=== PATIENT | male | born 1980 | race Hispanic/Latino ===

== ENCOUNTER 2017-12-14 14:52 | Emergency (ER) | payer SELFPAY ==
[2017-12-14] MEDS ORDERED: NA CHLORIDE 0.9% 1,000 ML ONE (15:20)
[2017-12-14] MEDS ORDERED: ONDANSETRON 4 MG/2 ML VIAL ONE (15:20)
[2017-12-14] MEDS ORDERED: MORPHINE 4 MG/ML SYR ONE ×2 (15:20→16:37)
[2017-12-14 15:37] LABS: Absolute Lymphocytes (CBC) 2.1 K/uL (0.7-4.9); Absolute Monocytes 0.7 K/uL (0.1-1.3); Absolute Neutrophil 8.3 K/uL (1.8-8.0); Basophils % 0.4 % (0-1.3); Eosinophils % 1.4 % (0-4.4); Lymphocytes % 18.4 % (15.3-44.8); MCH 31.3 pg (27.0-35.0); MCV 92.6 fL (80-100); MPV 9.4 fL (7.6-11.3); Monocytes % 6.2 % (3.3-12.3); RBC Red Blood Cell Count 5.08 M/uL (4.33-5.43)
--- NOTE | 2017-12-14 16:06 | RAD REPORT ---
EXAM DESCRIPTION: CT - Head C Spine Cap Tanika Goldberg - 12/14/2017 3:47 pm CLINICAL HISTORY: Head and neck injury with chest and abdominal pain status post fall. Head and neck pain . TECHNIQUE: Computed axial tomography of the head and cervical spine was obtained Computed axial tomography of the chest, abdomen and pelvis was obtained. 100 cc Isovue-300 was given intravenously coronal and sagittal reconstruction was performed. All CT scans are performed using dose optimization technique as appropriate and may include automated exposure control or mA/KV adjustment according to patient size. COMPARISON: None FINDINGS: An intracranial bleed is not seen. The ventricles are normal in caliber. An extra-axial fl uid collection is not noted. Fluid within the sinuses/mastoids is not seen A cervical fracture is not seen. No dislocation is seen. A mediastinal hematoma is not noted. A pleural effusion is not present. A lung contusion is not seen. The liver, spleen, pancreas, adrenals, kidneys and bladder do not demonstrate a traumatic injury. Fatty infiltration of liver is seen. Two sub centimeter enhancing lesions are present within the righ t lobe of the liver. A small umbilical hernia contains fat. Small inguinal hernias containing fat are noted. A couple of tiny nodules are present within the right lung IMPRESSION: 1. No acute intracranial abnormality is seen 2. A cervical fracture is not visualized. If the patient continues have symptoms to suggest intracran ial/spinal cord pathology then MRI would be recommended. 3. No traumatic injury involving the chest, abdomen or pelvis is seen. 4. Two sub centimeter enhancing hepatic lesions are nonspecific. MRI of the liver with contrast and d elayed images in 3 months is recommended to assess stability and further characterization 5. Tiny right lung nodules are nonspecific.
--- NOTE | 2017-12-14 16:23 | RAD REPORT ---
EXAM DESCRIPTION: RAD - Femur Right - 12/14/2017 4:14 pm CLINICAL HISTORY: PAIN Trauma COMPARISON: No comparisons FINDINGS: Mild osteoarthritic changes are present in the right hip. No fracture or dislocation is se en.
[2017-12-14] MEDS ORDERED: KETOROLAC 30 MG/ML INJ ONE (17:19)
--- NOTE | 2017-12-14 17:34 | EDPHYS ---
Physician Documentation [facility] Name: Jean-Claude Renee Age: 37 yrs Sex: Male : 1980 Arrival Date: 12/14/2017 Time: 14:53 Bed 7 Private MD: ED Physician Jai Farah HPI: 12/14 15:17 This 37 yrs old Male presents to ER via Ambulatory with complaints of Fall cp Injury. 15:17 Details of fall: The patient fell from a height, from a ladder, approximately 10 feet, cp and struck a concrete surface. Onset: The symptoms/episode began/occurred just prior to arrival. Associated injuries: The patient sustained right shoulder, painful injury, right hip, painful injury. Historical: - Allergies: 14:57 No Known Allergies; hj - Home Meds: 14:57 None [Active]; hj - PMHx: 14:57 None; hj - PSHx: 14:57 None; hj - Immunization history:: Adult Immunizations up to date. - Social history:: Smoking status: Patient uses tobacco products, smokes one-half pack cigarettes per day, Patient uses alcohol, on a daily basis. - Ebola Screening: : Patient negative for fever greater than or equal to 101.5 degrees Fahrenheit, and additional compatible Ebola Virus Disease symptoms Patient denies exposure to infectious person Patient denies travel to an Ebola-affected area in the 21 days before illness onset. ROS: 15:20 Constitutional: Negative for body aches, chills, fever, poor PO intake. cp 15:20 Eyes: Negative for injury, pain, redness, and discharge. cp 15:20 Neck: Negative for pain at rest, stiffness. 15:20 Cardiovascular: Negative for chest pain, palpitations. 15:20 Respiratory: Negative for cough, shortness of breath, wheezing. 15:20 Abdomen/GI: Negative for abdominal pain, nausea, vomiting, and diarrhea, black/tarry stool, rectal bleeding. 15:20 MS/extremity: Positive for decreased range of motion, pain, of the right shoulder and right hip. 15:20 Neuro: Negative for altered mental status, loss of consciousness, syncope, near syncope. 15:20 All other systems are negative. Exam: 15:38 Constitutional: The patient appears in no acute distress, alert, awake, cp non-diaphoretic, non-toxic, well developed, well nourished, uncomfortable. 15:38 Head/Face: Normocephalic, atraumatic. cp 15:38 Eyes: Pupils equal round and reactive to light, extra-ocular motions intact. Lids and lashes normal. Conjunctiva and sclera are non-icteric and not injected. Cornea within normal limits. Periorbital areas with no swelling, redness, or edema. 15:38 ENT: External ear(s): are unremarkable, Ear canal(s): are normal, clear, TM's: bulging, is not appreciated, bilaterally, erythema, is not appreciated, bilaterally, Nose: is normal, Mouth: Lips: moist, Oral mucosa: pink and intact, moist, Posterior pharynx: is normal, airway is patent, no erythema, no exudate. 15:38 Neck: C-spine: C-collar placed in ED, crepitus, is not appreciated, ROM/movement: is normal, is supple, without pain, no range of motions limitations, no nuchal rigidity. 15:38 Chest/axilla: Inspection: assymetry, is not appreciated, flail chest, is not appreciated, paradoxical chest wall movements, are not appreciated, Palpation: crepitus, is not appreciated, tenderness, is not appreciated. 15:38 Cardiovascular: Rate: normal, Rhythm: regular, Pulses: Pulses are 2+ in right radial artery, right dorsalis pedis artery, left radial artery and left dorsalis pedis artery. Edema: is not appreciated, JVD: 15:38 Respiratory: the patient does not display signs of respiratory distress, Respirations: normal, no use of accessory muscles, no retractions, no splinting, no tachypnea, labored breathing, is not present, Breath sounds: are clear throughout, no decreased breath sounds, no stridor, no wheezing. 15:38 Abdomen/GI: Inspection: obese Bowel sounds: active, Palpation: soft, in all quadrants. 15:38 Back: pain, that is severe, of the right scapular area, ROM is painful, with all movement. 15:38 Musculoskeletal/extremity: Extremities: grossly normal except: noted in the right shoulder and right hip: decreased ROM. 15:38 Skin: cellulitis, is not appreciated, no rash present. 15:38 Neuro: Orientation: to person, place \T\ time. Mentation: is normal, Cranial nerves: Motor: moves all fours, strength is normal, Sensation: no acute changes. Vital Signs: 14:59 BP 163 / 113; Pulse 89; Resp 18; Temp 97.6; Pulse Ox 98% on R/A; Weight 113.4 kg; hj Height 5 ft. 7 in. (170.18 cm); Pain 10/10; 16:23 BP 164 / 104; Pulse 94; Resp 20 S; Pulse Ox 96% on R/A; aa5 17:00 BP 170 / 111; Pulse 96; Resp 18 S; Pulse Ox 97% on R/A; aa5 17:57 BP 154 / 86; Pulse 96; Resp 16 S; Temp 97.8(TE); Pulse Ox 95% on R/A; aa5 14:59 Body Mass Index 39.16 (113.40 kg, 170.18 cm) Jacy Coma Score: 14:59 Eye Response: spontaneous(4). Verbal Response: oriented(5). Motor Response: obeys hj commands(6). Total: 15. Trauma Score (Adult): 14:59 Eye Response: spontaneous(1); Verbal Response: oriented(1); Motor Response: obeys hj commands(2); Systolic BP: > 89 mm Hg(4); Respiratory Rate: 10 to 29 per min(4); Frostproof Score: 15; Trauma Score: 12 16:23 Eye Response: spontaneous(1); Verbal Response: oriented(1); Motor Response: obeys aa5 commands(2); Systolic BP: > 89 mm Hg(4); Respiratory Rate: 10 to 29 per min(4); Frostproof Score: 15; Trauma Score: 12 17:00 Eye Response: spontaneous(1); Verbal Response: oriented(1); Motor Response: obeys aa5 commands(2); Systolic BP: > 89 mm Hg(4); Respiratory Rate: 10 to 29 per min(4); Frostproof Score: 15; Trauma Score: 12 17:57 Eye Response: spontaneous(1); Verbal Response: oriented(1); Motor Response: obeys aa5 commands(2); Systolic BP: > 89 mm Hg(4); Respiratory Rate: 10 to 29 per min(4); Jacy Score: 15; Trauma Score: 12 MDM: 15:13 Patient medically screened. [facility] 15:30 Differential diagnosis: closed head injury, contusion, fracture, multiple trauma. 17:30 Data reviewed: vital signs, nurses notes, lab test result(s), radiologic studies, CT cp scan, plain films. 17:30 Test interpretation: by ED physician or midlevel provider: plain radiologic studies. cp Counseling: I had a detailed discussion with the patient and/or guardian regarding: the historical points, exam findings, and any diagnostic results supporting the discharge/admit diagnosis, lab results, radiology results, to return to the emergency department if symptoms worsen or persist or if there are any questions or concerns that arise at home. ED course: VSS. Radiology studies negative for acute findings or injury. Will discharge to home for continued monitoring. 12/14 15:10 Order name: Basic Metabolic Panel; Complete Time: 17:19 snw 12/14 17:19 Interpretation: Normal except: GLUC 115; BUN 20; GFR 61. 12/14 15:10 Order name: CBC with Diff; Complete Time: 16:44 snw 12/14 16:44 Interpretation: Normal except: WBC 11.3. 12/14 15:10 Order name: CT Traumagram (Head C Spine CAP W Con); Complete Time: 16:44 snw 12/14 15:10 Order name: Creatinine for Radiology; Complete Time: 17:19 snw 12/14 15:10 Order name: Type And Screen; Complete Time: 17:19 snw 12/14 17:02 Order name: ABO/RH no charge; Complete Time: 17:19 EDMS 12/14 15:15 Order name: XRAY Pelvis 12/14 15:15 Order name: XRAY Shoulder RIGHT 2 view 12/14 15:15 Order name: XRAY Chest (1 view); Complete Time: 17:55 12/14 17:55 Interpretation: Report review. 12/14 15:16 Order name: XRAY Femur RIGHT; Complete Time: 16:44 12/14 15:10 Order name: Labs collected and sent; Complete Time: 15:21 snw 12/14 15:10 Order name: C-Collar; Complete Time: 15:20 snw 12/14 15:10 Order name: Gown patient; Complete Time: 15:12 snw 12/14 15:46 Order name: Labs - recollect needed; Complete Time: 16:28 bd 12/14 17:31 Order name: Sling; Complete Time: 18:30 cp 12/14 17:33 Order name: Crutches; Complete Time: 18:30 cp Administered Medications: 15:19 Drug: NS 0.9% 1000 ml Route: IV; Rate: 1 bolus; Site: left antecubital; aa5 15:27 Follow up: IV Pause: 12/14/2017 15:27; IV Pause Reason: Patient to CT aa5 16:22 Follow up: IV Resume: 12/14/2017 16:22; IV Resume Reason: Patient returned from CT aa5 15:19 CANCELLED (Duplicate Order): NS 0.9% 1000 ml IV at 1 bolus Per protocol; 1000 mL bolus aa5 15:19 Drug: morphine 4 mg Route: IVP; Site: left antecubital; aa5 15:25 Follow up: Response: No adverse reaction aa5 15:19 Drug: Zofran 4 mg Route: IVP; Site: left antecubital; aa5 15:25 Follow up: Response: No adverse reaction aa5 15:20 CANCELLED (Physician Discretion): morphine 5 mg IVP once aa5 16:34 Drug: morphine 4 mg Route: IVP; Site: left antecubital; aa5 16:40 Follow up: Response: No adverse reaction aa5 17:10 Drug: TORadol 30 mg Route: IVP; Site: left antecubital; aa5 17:15 Follow up: Response: No adverse reaction aa5 17:10 Drug: Diazepam 2 mg Route: IVP; Site: left antecubital; aa5 17:15 Follow up: Response: No adverse reaction aa5 Disposition: 12/15 06:44 Co-signature as Attending Physician, Jai Farah MD I agree with the assessment and masoud plan of care. Disposition: 12/14/17 17:33 Discharged to Home. Impression: Fall on and from ladder, Pain in right shoulder, Pain in right hip. - Condition is Stable. - Discharge Instructions: Shoulder Pain, Hip Pain. - Prescriptions for Cyclobenzaprine 10 mg Oral Tablet - take 1 tablet by ORAL route every 8 hours As needed; 20 tablet. Tramadol 50 mg Oral Tablet - take 1 tablet by ORAL route every 8 hours as needed; 20 tablet. - Medication Reconciliation Form, Thank You Letter, Antibiotic Education, Prescription Opioid Use form. - Follow up: Eduar Edmond MD; When: 2 - 3 days; Reason: right shoulder injury and right hip pain. - Problem is new. - Symptoms have improved. Signatures: Dispatcher [employer] EDMS Michelle Beaulieu Corey, MD MD cha Therrien, Shelly, FOOD SERVICE REPRESENTATIVE-C FOOD SERVICE REPRESENTATIVE-Csnw Yulisa Dietz, RN RN aa5 Elvin Rodríguez RN MARY Jai Medrano, SANCHO PA cp Corrections: (The following items were deleted from the chart) 12/14 15:19 15:16 NS 0.9% 1000 ml IV at 1 bolus Per protocol; 1000 mL bolus ordered. cp aa 15:20 15:10 morphine 5 mg IVP once ordered. snw aa5 18:46 15:10 [facility] 18:47 17:33 12/14/2017 17:33 Discharged to Home. Impression: Fall on and from ladder; Pain in aa5 right shoulder; Pain in right hip. Condition is Stable. Forms are Medication Reconciliation Form, Thank You Letter, Antibiotic Education, Prescription Opioid Use. Follow up: Eduar Edmond; When: 2 - 3 days; Reason: right shoulder injury and right hip pain. Problem is new. Symptoms have improved. cp
--- NOTE | 2017-12-14 17:34 | ER ---
Nurse's Notes [facility] Name: Jean-Claude Renee Age: 37 yrs Sex: Male : 1980 Arrival Date: 12/14/2017 Time: 14:53 Bed 7 Private MD: Diagnosis: Fall on and from ladder;Pain in right shoulder;Pain in right hip Presentation: 12/14 14:54 Presenting complaint: Patient states: i was at the ladder about 10 feet, i turned sideways to position the piping and the ladder went the other way i fell and hit the R shoulder, R arm, R hip and R leg; denies hitting head and LOC; pain 10/10;. Transition of care: patient was not received from another setting of care. Onset of symptoms was December 14, 2017. Risk Assessment: Do you want to hurt yourself or someone else? Patient reports no desire to harm self or others. Initial Sepsis Screen: Does the patient meet any 2 criteria? No. Patient's initial sepsis screen is negative. Does the patient have a suspected source of infection? No. Patient's initial sepsis screen is negative. Care prior to arrival: None. 14:54 Method Of Arrival: Ambulatory 14:54 Acuity: HOLLY 2 14:59 Mechanism of Injury: Fall. Trauma event details: Injury occurred in the county [facility], Injury occurred: in a public building. Injury occurred: December 14, 2017 Injury occurred at: 14:00. Triage Assessment: 14:58 General: Appears in no apparent distress. uncomfortable, Behavior is calm, cooperative, hj appropriate for age. Pain: Complains of pain in right arm and right leg Pain currently is 10 out of 10 on a pain scale. Trauma Activation: Alert Physician: ED Physician; Name: ; Notified At: ; Arrived At: Physician: General Surgeon; Name: ; Notified At: ; Arrived At: Physician: Radiology; Name: ; Notified At: ; Arrived At: Physician: Respiratory; Name: ; Notified At: ; Arrived At: Physician: Lab; Name: ; Notified At: ; Arrived At: Historical: - Allergies: 14:57 No Known Allergies; hj - Home Meds: 14:57 None [Active]; hj - PMHx: 14:57 None; hj - PSHx: 14:57 None; hj - Immunization history:: Adult Immunizations up to date. - Social history:: Smoking status: Patient uses tobacco products, smokes one-half pack cigarettes per day, Patient uses alcohol, on a daily basis. - Ebola Screening: : Patient negative for fever greater than or equal to 101.5 degrees Fahrenheit, and additional compatible Ebola Virus Disease symptoms Patient denies exposure to infectious person Patient denies travel to an Ebola-affected area in the 21 days before illness onset. Screenin:58 Abuse screen: Denies threats or abuse. Denies injuries from another. Nutritional hj screening: No deficits noted. Tuberculosis screening: No symptoms or risk factors identified. Fall Risk None identified. Primary Survey: 15:00 A: Airway: patent. Breathing/Chest: Respiratory pattern: regular, Respiratory effort: aa5 spontaneous, unlabored, Breath sounds: clear, bilaterally. Chest inspection: symmetrical rise and fall of the chest. Circulation: Skin color: pink. Disability Alert. 15:15 Reassessment Airway Airway Patent Breathing/Chest Respiratory pattern Regular aa5 Respiratory effort Spontaneous Unlabored Breath sounds Clear Chest inspection Symmetrical Circulation Color [employer] Disability Alert. Secondary Survey: 15:00 HEENT: No deficits noted. Gastrointestinal: No deficits noted. : No signs and/or aa5 symptoms were reported regarding the genitourinary system. Musculoskeletal: Reports pain in right shoulder and right hip. Assessment: 15:00 General: Appears uncomfortable, Behavior is calm, cooperative. Pain: Complains of pain aa5 in right scapula and right hip Pain does not radiate. Pain currently is 10 out of 10 on a pain scale. 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 Neuro: Level of Consciousness is awake, alert, obeys commands, Oriented to person, place, time, situation. Cardiovascular: Heart tones S1 S2 present Rhythm is regular. Respiratory: Airway is patent Respiratory effort is even, unlabored, Respiratory pattern is regular, symmetrical, Breath sounds are clear bilaterally. GI: Abdomen is round Bowel sounds present X 4 quads. Abd is soft and non tender X 4 quads. Patient currently denies abdominal pain, nausea, vomiting. : No signs and/or symptoms were reported regarding the genitourinary system. EENT: No signs and/or symptoms were reported regarding the EENT system. Derm: Skin is pink, warm \T\ dry. Musculoskeletal: Reports pain in right shoulder and right hip. 15:27 Reassessment: Patient is alert, oriented x 3, equal unlabored respirations, skin aa5 warm/dry/pink. Patient states symptoms have not improved. Pt taken to CT. PA was notified of pt's pain level. . 15:27 Pain: Pain currently is 10 out of 10 on a pain scale. aa5 15:50 Reassessment: To bedside to recollect blood, pt remains in CT . aa5 16:20 Reassessment: C-collar removed per PA . aa5 16:22 Reassessment: Pt back from CT . aa5 16:23 Reassessment: Patient and/or family updated on plan of care and expected duration. Pain aa5 level reassessed. Patient is alert, oriented x 3, equal unlabored respirations, skin warm/dry/pink. General: Appears comfortable. Pain: Pain currently is 10 out of 10 on a pain scale. 16:25 Reassessment: Blood recollected and sent to lab . aa5 17:10 Reassessment: Patient and/or family updated on plan of care and expected duration. Pain aa5 level reassessed. Patient is alert, oriented x 3, equal unlabored respirations, skin warm/dry/pink. Pt medicated (see MAR). Pain: Pain currently is 9 out of 10 on a pain scale. 17:50 Reassessment: Patient and/or family updated on plan of care and expected duration. Pain aa5 level reassessed. Patient is alert, oriented x 3, equal unlabored respirations, skin warm/dry/pink. Patient states feeling better. Pain: Pain currently is 7 out of 10 on a pain scale. 18:25 Reassessment: Sling applied to right arm . aa5 18:25 Reassessment: Patient is alert, oriented x 3, equal unlabored respirations, skin aa5 warm/dry/pink. Vital Signs: 14:59 BP 163 / 113; Pulse 89; Resp 18; Temp 97.6; Pulse Ox 98% on R/A; Weight 113.4 kg; hj Height 5 ft. 7 in. (170.18 cm); Pain 10/10; 16:23 BP 164 / 104; Pulse 94; Resp 20 S; Pulse Ox 96% on R/A; aa5 17:00 BP 170 / 111; Pulse 96; Resp 18 S; Pulse Ox 97% on R/A; aa5 17:57 BP 154 / 86; Pulse 96; Resp 16 S; Temp 97.8(TE); Pulse Ox 95% on R/A; aa5 14:59 Body Mass Index 39.16 (113.40 kg, 170.18 cm) hj Jacy Coma Score: 14:59 Eye Response: spontaneous(4). Verbal Response: oriented(5). Motor Response: obeys hj commands(6). Total: 15. Trauma Score (Adult): 14:59 Eye Response: spontaneous(1); Verbal Response: oriented(1); Motor Response: obeys hj commands(2); Systolic BP: > 89 mm Hg(4); Respiratory Rate: 10 to 29 per min(4); Howell Score: 15; Trauma Score: 12 16:23 Eye Response: spontaneous(1); Verbal Response: oriented(1); Motor Response: obeys aa5 commands(2); Systolic BP: > 89 mm Hg(4); Respiratory Rate: 10 to 29 per min(4); Howell Score: 15; Trauma Score: 12 17:00 Eye Response: spontaneous(1); Verbal Response: oriented(1); Motor Response: obeys aa5 commands(2); Systolic BP: > 89 mm Hg(4); Respiratory Rate: 10 to 29 per min(4); Jacy Score: 15; Trauma Score: 12 17:57 Eye Response: spontaneous(1); Verbal Response: oriented(1); Motor Response: obeys aa5 commands(2); Systolic BP: > 89 mm Hg(4); Respiratory Rate: 10 to 29 per min(4); Howell Score: 15; Trauma Score: 12 ED Course: 14:53 Patient arrived in ED. rg4 14:57 Triage completed. hj 15:00 Inserted saline lock: 20 gauge in left antecubital area, using aseptic technique. Blood iw collected. 15:00 Patient maintains SpO2 saturation greater than 95% on room air. Thermoregulation: warm aa5 blanket given to patient. 15:00 Arm band placed on. aa5 15:00 Patient has correct armband on for positive identification. Placed in gown. Bed in low aa5 position. Call light in reach. Side rails up X2. 15:05 Yulisa Dietz, RN is Primary Nurse. aa5 15:11 Jai Medrano PA is PHCP. cp 15:11 Jai Farah MD is Attending Physician. cp 15:26 Radiology exam delayed due to wanted Xray first. vm2 15:37 XRAY Pelvis In Process Unspecified. EDMS 15:37 XRAY Shoulder RIGHT 2 view In Process Unspecified. EDMS 15:37 XRAY Chest (1 view) In Process Unspecified. EDMS 15:47 CT Traumagram (Head C Spine CAP W Con) In Process Unspecified. EDMS 15:47 CT completed. Patient tolerated procedure well. Patient moved back from CT. nj 16:10 XRAY Femur RIGHT In Process Unspecified. EDMS 17:32 Eduar Edmond MD is Referral Physician. cp 18:26 No provider procedures requiring assistance completed. IV discontinued, intact, aa5 bleeding controlled, No redness/swelling at site. Pressure dressing applied. Administered Medications: 15:19 Drug: NS 0.9% 1000 ml Route: IV; Rate: 1 bolus; Site: left antecubital; aa5 15:27 Follow up: IV Pause: 12/14/2017 15:27; IV Pause Reason: Patient to CT aa5 16:22 Follow up: IV Resume: 12/14/2017 16:22; IV Resume Reason: Patient returned from CT aa5 15:19 CANCELLED (Duplicate Order): NS 0.9% 1000 ml IV at 1 bolus Per protocol; 1000 mL bolus aa5 15:19 Drug: morphine 4 mg Route: IVP; Site: left antecubital; aa5 15:25 Follow up: Response: No adverse reaction aa5 15:19 Drug: Zofran 4 mg Route: IVP; Site: left antecubital; aa5 15:25 Follow up: Response: No adverse reaction aa5 15:20 CANCELLED (Physician Discretion): morphine 5 mg IVP once aa5 16:34 Drug: morphine 4 mg Route: IVP; Site: left antecubital; aa5 16:40 Follow up: Response: No adverse reaction aa5 17:10 Drug: TORadol 30 mg Route: IVP; Site: left antecubital; aa5 17:15 Follow up: Response: No adverse reaction aa5 17:10 Drug: Diazepam 2 mg Route: IVP; Site: left antecubital; aa5 17:15 Follow up: Response: No adverse reaction aa5 Intake: 18:26 PO: 0ml; Total: 0ml. aa5 Outcome: 17:33 Discharge ordered by . mgaui 17:33 Patient's length of stay in the Emergency Department was greater than 2 hours. Awaiting aa5 radiology results Patient's length of stay extended due to 18:26 Discharged to home via wheelchair, with crutches, with significant other. aa5 18:26 Condition: stable 18:26 Discharge instructions given to patient, Instructed on discharge instructions, follow up and referral plans. medication usage, Demonstrated understanding of instructions, follow-up care, medications, Prescriptions given X 2. 18:30 Patient left the ED. aa5 Signatures: Dispatcher [employer] EDMS Any Lanza RN RN Yulisa Dietz RN RN aa5 Elvin Rodríguez RN RN Jai Medrano PA PA cp Garcia, Rubi 4 [place] [id number] Corrections: (The following items were deleted from the chart) 15:17 14:54 Acuity: HOLLY 4 [facility] 15:26 14:54 Acuity: HOLLY 2 [facility] 15:27 15:24 [facility] vm2 18:48 18:47 Patient left the ED. aa5 aa5
--- NOTE | 2017-12-14 17:45 | RAD REPORT ---
EXAM DESCRIPTION: RAD - Chest Single View - 12/14/2017 3:39 pm CLINICAL HISTORY: fall off ladder Chest pain. COMPARISON: Head C Spine Cap W Con dated 12/14/2017 FINDINGS: Portable technique limits examination quality. The lungs are significantly underinflated resulting in vascular crowding. The heart is normal in size . No displaced fractures.
--- NOTE | 2017-12-14 18:44 | RAD REPORT ---
EXAM DESCRIPTION: RAD - Pelvis - 12/14/2017 3:36 pm CLINICAL HISTORY: Pelvic pain status post injury FINDINGS: No fracture or dislocation is seen.
--- NOTE | 2017-12-14 19:17 | RAD REPORT ---
EXAM DESCRIPTION: RAD - Shoulder Right 2 View - 12/14/2017 3:37 pm CLINICAL HISTORY: Right shoulder pain status post fall FINDINGS: No fracture or dislocation is seen.
== END 2017-12-14 18:47 | disposition home or self-care (01) ==
LOC: ER 14:52
DX: M25.551 Pain in right hip (principal); W11.XXXA Fall on and from ladder, initial encounter; Y93.9 Activity, unspecified; Y92.9 Unspecified place or not applicable; F17.210 Nicotine dependence, cigarettes, uncomplicated
CPT/HCPCS: 36415; 70450; 71045; 71260; 72125; 72170; 74177; 80048; 85025; 86850; 86900; 86901; 96374; 96375; 99285; J2405; J7030; Q9967

== ENCOUNTER 2019-03-23 06:55 | Emergency (ER) | payer SELFPAY ==
[2019-03-23] MEDS ORDERED: KETOROLAC 30 MG/ML INJ ONE (07:32)
[2019-03-23 08:13] LABS: Absolute Lymphocytes (CBC) 2.9 K/uL (0.7-4.9); Basophils % 0.4 % (0-1.3); Hematocrit 46.4 % (39.6-49.0); Lymphocytes % 27.5 % (15.3-44.8); RBC Red Blood Cell Count 5.09 M/uL (4.33-5.43)
[2019-03-23 08:19] LABS: Potassium 3.8 mmol/L (3.5-5.1)
[2019-03-23] MEDS ORDERED: MEPERIDINE HCL 25 MG/0.5 ML ONE (08:20)
[2019-03-23] MEDS ORDERED: MEPERIDINE HCL 50 MG/ML ONE (08:21)
--- NOTE | 2019-03-23 09:05 | RAD REPORT ---
EXAM DESCRIPTION: Isak Single View03/23/2019 7:30 am CLINICAL HISTORY: Chest pain COMPARISON: 2017 FINDINGS: The lungs appear clear of acute infiltrate. The heart is normal size IMPRESSION: No acute abnormalities displayed
--- NOTE | 2019-03-23 09:11 | RAD REPORT ---
EXAM DESCRIPTION: CT - Chest For Pe Angio - 03/23/2019 8:52 am CLINICAL HISTORY: Chest pain COMPARISON: None. TECHNIQUE: Dynamically enhanced axial 3 mm thick images of the chest were obtained during administra tion of <100> mL Isovue 370 IV contrast. Coronal and oblique reconstruction images were generated and reviewed. Exam utilizes a protocol for optimal evaluation of pulmonary arterial tree. Maximum intensity projections 3D imaging was utilized All CT scans are performed using dose optimization technique as appropriate and may include automated exposure control or mA/KV adjustment according to patient size. FINDINGS: The evaluation of the peripheral pulmonary arteries is limited secondary to respiratory mo tion artifact A pulmonary embolus is not seen. A thoracic aortic aneurysm is not noted. A pleural effusion is not seen. A pericardial effusion is not seen. A lung consolidation is not present. Fatty liver IMPRESSION: Negative for a pulmonary embolism.
--- NOTE | 2019-03-23 10:03 | RAD REPORT ---
EXAM DESCRIPTION: Ribs Right - 03/23/2019 7:29 am CLINICAL HISTORY: Right rib pain FINDINGS: No fracture is seen
[2019-03-23] MEDS ORDERED: MORPHINE 4 MG/ML SYR ONE (10:20)
--- NOTE | 2019-03-23 10:23 | ER ---
Nurse's Notes [facility] Name: Jean-Claude Renee Age: 39 yrs Sex: Male : 1980 Arrival Date: 03/23/2019 Time: 06:55 Bed 6 Private MD: Diagnosis: Sprain of ribs;Chest pain, unspecified Presentation: 03/23 07:06 Presenting complaint: Patient states: right mid side pain started 10 mins ago. sv Transition of care: patient was not received from another setting of care. Onset of symptoms was March 23, 2019. Risk Assessment: Do you want to hurt yourself or someone else? Patient reports no desire to harm self or others. Initial Sepsis Screen: Does the patient meet any 2 criteria? No. Patient's initial sepsis screen is negative. Does the patient have a suspected source of infection? No. Patient's initial sepsis screen is negative. Care prior to arrival: None. 07:06 Method Of Arrival: Wheelchair sv 07:06 Acuity: HOLLY 2 sv Triage Assessment: 07:06 General: Appears distressed, uncomfortable, well developed, Behavior is cooperative, sv restless. Pain: Complains of pain in right mid back Pain currently is 10 out of 10 on a pain scale. Pain began 10 mins ago Is continuous, Aggravated by increased activity, Noted to be restless, Also complains of diaphoresis. Neuro: Level of Consciousness is awake, alert, obeys commands, Oriented to person, place, time, situation, Moves all extremities. Full function Gait is steady. Cardiovascular: Rhythm is sinus rhythm. Respiratory: Respiratory effort is even, unlabored, Respiratory pattern is regular, symmetrical. Derm: Skin is intact, Skin is diaphoretic, Skin is pink, warm \\T\\ dry. Historical: - Allergies: 07:06 No Known Allergies; sv - PMHx: 07:06 None; sv - PSHx: 07:06 None; sv - Immunization history:: Adult Immunizations up to date, Flu vaccine is not up to date. - Social history:: Smoking status: Patient/guardian denies using tobacco. - Ebola Screening: : No symptoms or risks identified at this time. - Family history:: not pertinent. - Hospitalizations: : No recent hospitalization is reported. Screenin:40 Abuse screen: Denies threats or abuse. Denies injuries from another. Nutritional sv screening: No deficits noted. Tuberculosis screening: No symptoms or risk factors identified. Fall Risk None identified. Assessment: 07:35 Reassessment: Patient appears in no apparent distress at this time. No changes from previously documented assessment. Patient and/or family updated on plan of care and expected duration. Pain level reassessed. Patient is alert, oriented x 3, equal unlabored respirations, skin warm/dry/pink. 08:19 Reassessment: pt daughter at nurses station, requesting help she states " my dad says sg he feels like he cant breath." pt assessed, no distress noted at this time, pt appears uncomfortable, pt reports " the pain is not any better and i feel short of breath." pt repositioned with HOB elevated, placed to 4 lpm NC, VSS, notified, orders received, pt medicated, awaiting CT scanner at this time. 09:11 Reassessment: Patient appears in no apparent distress at this time. Patient and/or sv family updated on plan of care and expected duration. Pain level reassessed. Patient is alert, oriented x 3, equal unlabored respirations, skin warm/dry/pink. Patient states feeling better. 10:23 Reassessment: Patient appears in no apparent distress at this time. Patient and/or sv family updated on plan of care and expected duration. Pain level reassessed. Patient is alert, oriented x 3, equal unlabored respirations, skin warm/dry/pink. Vital Signs: 07:07 BP 189 / 120; Pulse 88; Resp 26; Temp 97.8; Pulse Ox 96% ; Weight 117.93 kg; Height 5 sv ft. 7 in. (170.18 cm); Pain 10/10; 07:40 BP 176 / 118; Pulse 86; Resp 30; Pulse Ox 97% on R/A; sv 08:27 BP 193 / 120; Pulse 86; Resp 18; Pulse Ox 97% ; sv 09:04 BP 164 / 116; Pulse 76; Resp 18; Pulse Ox 97% on 4 lpm NC; sv 09:24 BP 149 / 100; Pulse 73; Resp 18; Pulse Ox 97% ; sv 10:09 BP 152 / 104; Pulse 77; Resp 16; Pulse Ox 98% ; sv 07:07 Body Mass Index 40.72 (117.93 kg, 170.18 cm) ED Course: 06:55 Patient arrived in ED. as 06:59 Chris Zamora MD is Attending Physician. rn 07:05 Dayanna Carrera, MARY is Primary Nurse. sv 07:06 Triage completed. sv 07:06 Patient has correct armband on for positive identification. Placed in gown. Bed in low sv position. Call light in reach. maintenance instructor on. Pulse ox on. NIBP on. Door closed. Head of bed elevated. 07:08 Arm band placed on. sv 07:11 Patient moved to radiology via wheelchair. sv 07:28 XRAY Ribs RIGHT In Process Unspecified. EDMS 07:28 XRAY Chest (1 view) In Process Unspecified. EDMS 07:35 Inserted saline lock: 20 gauge in right antecubital area, using aseptic technique. sv Blood collected. Flushed right antecubital with 5 ml normal saline. 07:35 EKG done, by ED staff, reviewed by Chris Zamora MD. sv 07:40 Awaiting lab results, Awaiting radiology results. sv 08:[address] via stretcher. sv 08:53 CT Chest For PE Angio In Process Unspecified. EDMS 08:[address] from [address]. sv 08:57 Awaiting radiology results. sv 10:23 INCENTIVE SPIROMETRY Sent. sv 10:23 No provider procedures requiring assistance completed. Incentive spirometer education sv provided by an Emergency Department nursing staff member. IV discontinued, intact, bleeding controlled, No redness/swelling at site. Pressure dressing applied. Administered Medications: 07:37 Drug: TORadol - Ketorolac 15 mg Route: IVP; Site: right antecubital; sv 08:26 Follow up: Response: No adverse reaction sv 08:24 Not Given (Other Intervention Used): Demerol 25 mg IVP once; RASS on ADMIN: Combtv4, sg Very Agttd3, Agttd2, Rstlss1, AlertClm0, Drwsy-1, Lt Sdtn-2, Mod Sdtn-3, Dp Sdtn-4, UnArsble-5 08:24 Drug: Demerol 50 mg Route: IVP; Site: right antecubital; sg 09:11 Follow up: Response: No adverse reaction; Pain is decreased; RASS: Drowsy (-1) sg 10:23 Drug: morphine 4 mg {Note: rass1.} Route: IVP; Site: right antecubital; sv 10:42 Follow up: Response: No adverse reaction; Pain is decreased; RASS: Alert and Calm (0) sv Outcome: 10:22 Discharge ordered by . rn 10:41 Discharged to home with family. sv 10: Condition: stable 10:41 Discharge instructions given to patient, Instructed on discharge instructions, follow up and referral plans. no drinking with medication, no driving heavy equipment, medication usage, incentive spirometry education, to started a BP log in order to take to his f/u once he establishes with a PCP. Demonstrated understanding of instructions, follow-up care, medications, incentive spirometry education, to started a BP log in order to take to his f/u once he establishes with a PCP. Prescriptions given X 2. 10:42 Patient left the ED. sv Signatures: Dispatcher [employer] EDDayanna Escobar RN RN Eduar Lyle RN RN Christine Mak Roman, MD MD product management intern: (The following items were deleted from the chart) 07:08 07:06 Acuity: HOLLY 3 sv sv 07:11 07:09 Patient moved to radiology via wheelchair. sv sv
--- NOTE | 2019-03-23 10:23 | EDPHYS ---
Physician Documentation [facility] Name: Jean-Claude Renee Age: 39 yrs Sex: Male : 1980 Arrival Date: 03/23/2019 Time: 06:55 Bed 6 Private MD: ED Physician Chris Zamora HPI: 03/23 07:05 This 39 yrs old Male presents to ER via Unassigned with complaints of Rib Pain.rn 07:05 The patient or guardian reports chest pain that is located primarily in the right rn lateral posterior chest. Onset: just prior to arrival. The pain does not radiate. Associated signs and symptoms: Pertinent positives: cough, Pertinent negatives: abdominal pain, lightheadedness, near syncope, palpitations, recent travel, shortness of breath, syncope, vomiting. The chest pain is described as sharp, stabbing. Duration: The patient or guardian reports multiple episodes, that are intermittent. Modifying factors: The symptoms are alleviated by nothing. the symptoms are aggravated by cough, deep breath, palpation of area. Severity of pain: At its worst the pain was moderate in the emergency department the pain is unchanged. The patient has not experienced similar symptoms in the past. Reports has had cough/cold/congestion for several days, was at stoplight [employer]EL[employer], coughed and sneezed at same time, felt immediate sharp pain to right psoterior/lateral inferior ribs, felt a "snap". Hurts to breathe deep and cough. No hemoptysis. . Historical: - Allergies: 07:06 No Known Allergies; sv - PMHx: 07:06 None; sv - PSHx: 07:06 None; sv - Immunization history:: Adult Immunizations up to date, Flu vaccine is not up to date. - Social history:: Smoking status: Patient/guardian denies using tobacco. - Ebola Screening: : No symptoms or risks identified at this time. - Family history:: not pertinent. - Hospitalizations: : No recent hospitalization is reported. ROS: 07:05 Constitutional: Negative for fever, chills, and weight loss, Eyes: Negative for injury, rn pain, redness, and discharge, Neck: Negative for injury, pain, and swelling, Cardiovascular: Negative for palpitations, and edema, Respiratory: Negative for shortness of breath, wheezing Abdomen/GI: Negative for abdominal pain, nausea, vomiting, diarrhea, and constipation, MS/Extremity: Negative for injury and deformity, Skin: Negative for injury, rash, and discoloration, Neuro: Negative for headache, weakness, numbness, tingling, and seizure. Exam: 07:05 Constitutional: This is a well developed, well nourished patient who is awake, alert, rn appears uncomfortable Head/Face: Normocephalic, atraumatic. Chest/axilla: Normal chest wall appearance and motion. + tender right posterior/lateral/inferior ribs at CVA, no crepitus Cardiovascular: Regular rate and rhythm. No pulse deficits. Respiratory: Clear bilateral breath sounds, no wheezing Abdomen/GI: soft, non-tender MS/ Extremity: Pulses equal, no cyanosis. Neurovascular intact. Full, normal range of motion. Equal circumference. Neuro: Awake and alert, GCS 15, oriented to person, place, time, and situation. Cranial nerves II-XII grossly intact. Motor strength 5/5 in all extremities. Sensory grossly intact. Cerebellar exam normal. Normal gait. 07:40 ECG was reviewed by the Attending Physician. rn Vital Signs: 07:07 BP 189 / 120; Pulse 88; Resp 26; Temp 97.8; Pulse Ox 96% ; Weight 117.93 kg; Height 5 sv ft. 7 in. (170.18 cm); Pain 10/10; 07:40 BP 176 / 118; Pulse 86; Resp 30; Pulse Ox 97% on R/A; sv 08:27 BP 193 / 120; Pulse 86; Resp 18; Pulse Ox 97% ; sv 09:04 BP 164 / 116; Pulse 76; Resp 18; Pulse Ox 97% on 4 lpm NC; sv 09:24 BP 149 / 100; Pulse 73; Resp 18; Pulse Ox 97% ; sv 10:09 BP 152 / 104; Pulse 77; Resp 16; Pulse Ox 98% ; sv 07:07 Body Mass Index 40.72 (117.93 kg, 170.18 cm) sv MDM: 06:59 Patient medically screened. rn 08:36 ED course: Pt improved. rn 10:17 Differential diagnosis: chest wall pain, costochondritis, pleurisy, pneumothorax, rn broken rib, bruised rib, chest wall sprain, muscle tear. Data reviewed: vital signs, nurses notes, lab test result(s), EKG, radiologic studies, CT scan, plain films, and as a result, I will discharge patient. Counseling: I had a detailed discussion with the patient and/or guardian regarding: the historical points, exam findings, and any diagnostic results supporting the discharge/admit diagnosis, lab results, radiology results, the need for outpatient follow up, to return to the emergency department if symptoms worsen or persist or if there are any questions or concerns that arise at home. Response to treatment: the patient's symptoms have mildly improved after treatment, and as a result, I will discharge patient. Special discussion: I discussed with the patient/guardian in detail that at this point there is no indication for admission to the hospital. It is understood, however, that if the symptoms persist or worsen the patient needs to return immediately for re-evaluation. ED course: Xray chest/ribs and ct chest neg for acute findings. ECG normal. Improved with pain meds. Reproducible and worse with movement and palpation. Most likely chest wall strain/sprain/tear, will dc home with pain meds and muscle relaxer. . 03/23 07:29 Order name: CBC with Diff; Complete Time: 08:16 rn 03/23 07:29 Order name: Basic Metabolic Panel; Complete Time: 08:20 rn 03/23 07:04 Order name: XRAY Ribs RIGHT; Complete Time: 10:05 rn 03/23 07:04 Order name: XRAY Chest (1 view); Complete Time: 10:05 rn 03/23 08:17 Order name: CT Chest For PE Angio; Complete Time: 10:05 rn 03/23 10:16 Order name: INCENTIVE SPIROMETRY rn 03/23 07:04 Order name: EKG; Complete Time: 07:05 rn 03/23 07:04 Order name: EKG - Nurse/Tech; Complete Time: 07:37 rn 03/23 07:29 Order name: IV Start; Complete Time: 07:37 rn EC:40 Rate is 86 beats/min. Rhythm is regular. QRS [place] is Normal. [place] interval is normal. QRS rn interval is normal. QT interval is normal. No Q waves. T waves are Normal. No ST changes noted. Clinical impression: Normal ECG. Interpreted by me. Reviewed by me. Administered Medications: 07:37 Drug: TORadol - Ketorolac 15 mg Route: IVP; Site: right antecubital; sv 08:26 Follow up: Response: No adverse reaction sv 08:24 Not Given (Other Intervention Used): Demerol 25 mg IVP once; RASS on ADMIN: Combtv4, sg Very Agttd3, Agttd2, Rstlss1, AlertClm0, Drwsy-1, Lt Sdtn-2, Mod Sdtn-3, Dp Sdtn-4, UnArsble-5 08:24 Drug: Demerol 50 mg Route: IVP; Site: right antecubital; sg 09:11 Follow up: Response: No adverse reaction; Pain is decreased; RASS: Drowsy (-1) sg 10:23 Drug: morphine 4 mg {Note: rass1.} Route: IVP; Site: right antecubital; sv 10:42 Follow up: Response: No adverse reaction; Pain is decreased; RASS: Alert and Calm (0) sv Disposition: 03/23/19 10:22 Discharged to Home. Impression: Sprain of ribs, Chest pain, unspecified. - Condition is Stable. - Discharge Instructions: Chest Wall Pain. - Prescriptions for Tylenol- Codeine #3 300-30 mg Oral Tablet - take 1 tablet by ORAL route every 6 hours As needed; 20 tablet. Cyclobenzaprine 10 mg Oral Tablet - take 1 tablet by ORAL route every 8 hours As needed; 15 tablet. - Medication Reconciliation Form, Thank You Letter, Antibiotic Education, Prescription Opioid Use, Work release form form. - Follow up: Private Physician; When: As needed; Reason: Recheck today's complaints, Re-evaluation by your physician. - Problem is new. - Symptoms have improved. Signatures: Dispatcher [employer] Dayanna Ribeiro RN RN sv Gay, Steven, RN RN sg Nieto, Roman, MD MD rn Corrections: (The following items were deleted from the chart) 10:42 10:22 03/23/2019 10:22 Discharged to Home. Impression: Sprain of ribs; Chest pain, sv unspecified. Condition is Stable. Forms are Medication Reconciliation Form, Thank You Letter, Antibiotic Education, Prescription Opioid Use. Follow up: Private Physician; When: As needed; Reason: Recheck today's complaints, Re-evaluation by your physician. Problem is new. Symptoms have improved. rn
[2019-03-23 10:59] VITALS: TEMP 97.8
[2019-03-23 11:07] VITALS: BP 152/104; O2SAT 98
--- NOTE | 2019-03-23 12:42 | EKG ---
Test Date: 2019-03-23 Test Time: 07:37:13 Auto Garage Attendant: SEMAJ MEASUREMENT RESULTS: Intervals: Rate: 86 AL: 148 QRSD: 84 QT: 374 QTc: 447 [place]: P: 60 AL: 148 QRS: 59 T: 45 INTERPRETIVE STATEMENTS: Normal sinus rhythm Normal ECG Compared to ECG 07/20/2005 20:53:51 No significant changes Electronically Signed On 03-23-19 12:41:23 OBSTETRICAL TECH by Valentin Ortiz
== END 2019-03-23 10:42 | disposition home or self-care (01) ==
LOC: ER 06:55
DX: S23.41XA Sprain of ribs, initial encounter (principal); X58.XXXA Exposure to other specified factors, initial encounter; Y93.9 Activity, unspecified; Y92.89 Other specified places as the place of occurrence of the external cause
CPT/HCPCS: 36415; 71045; 71275; 80048; 85025; 93005; 96374; 96375; 99285; J2175

== ENCOUNTER 2020-04-21 12:07 | Emergency (ER) | payer SELFPAY ==
--- NOTE | 2020-04-21 13:50 | ER ---
Nurse's Notes [facility] Name: Jean-Claude Renee Age: 40 yrs Sex: Male : 1980 Arrival Date: 04/21/2020 Time: 12:09 Bed Waiting Private MD: Diagnosis: Acute upper respiratory infection, unspecified Presentation: 04/21 12:28 Chief complaint: Patient states: Exposed Wednesday to covid. Still has leftover cough ll1 and slight SOB from his asthmatic bronchitis diagnosis from 2 weeks ago. No fever. Dry cough throughout the night. Coronavirus screen: Client denies travel out of the [place] in the last 14 days. congestion, cough unrelated to allergies, shortness of breath, Client presents with at least one sign or symptom that may indicate coronavirus-19. Standard/surgical mask placed on the client. Ebola Screen: Patient denies travel to an Ebola-affected area in the 21 days before illness onset. Initial Sepsis Screen: Does the patient meet any 2 criteria? HR > 90 bpm. No. Patient's initial sepsis screen is negative. Does the patient have a suspected source of infection? Yes: Productive cough/pneumonia. Risk Assessment: Do you want to hurt yourself or someone else? Patient reports no desire to harm self or others. Onset of symptoms was April 05, 2020. 12:28 Method Of Arrival: Ambulatory ll1 12:28 Acuity: HOLLY 3 ll1 Triage Assessment: 12:28 General: Appears in no apparent distress. Behavior is calm, cooperative, appropriate ll1 for age. Pain: Denies pain. Neuro: No deficits noted. Cardiovascular: No deficits noted. Respiratory: Reports cough that is Airway is patent Trachea midline Respiratory effort is even, unlabored, Respiratory pattern is regular, symmetrical, Breath sounds are clear bilaterally. Onset: The symptoms/episode began/occurred 2 weeks ago, the patient has mild shortness of breath. 13:30 General: Appears in no apparent distress. comfortable, covid/flu swab obtained and ll1 sent. . Historical: - Allergies: 12:32 No Known Drug Allergies; ll1 - PMHx: 12:32 Asthma; Bronchitis; ll1 - PSHx: 12:32 None; ll1 - Immunization history:: Flu vaccine is not up to date. - Social history:: Smoking status: Patient reports the use of cigarette tobacco products, smokes one-half pack cigarettes per day. Assessment: 13:50 Reassessment: Pt left from [facility]. hb Vital Signs: 12:28 BP 157 / 104; ll1 12:28 Pulse 108; Resp 18; Temp 97.4; Pulse Ox 95% on R/A; Weight 105.23 kg; Height 5 ft. 8 ll1 in. (172.72 cm); Pain 0/10; 12:28 Body Mass Index 35.27 (105.23 kg, 172.72 cm) ll1 ED Course: 12:09 Patient arrived in ED. rg4 12:28 Arm band placed on. ll1 12:31 Triage completed. ll1 13:05 [facility] Gamble [facility]C [facility] kb 13:05 Christ Garcia MD is Attending Physician. kb 13:59 Judah Vernon, RN is Primary Nurse. ll1 Administered Medications: No medications were administered Outcome: 13:50 Patient left the ED. hb 14:00 Discharge ordered by MD. kb 14:00 Patient left the ED. kb Signatures: Yanely Gamble FNP-C FNP-Ckb Baxter, Heather RN RN Krystal Rivera rg4 Judah Vernon, MARY RN ll1 Corrections: (The following items were deleted from the chart) 13:02 12:28 Pulse 108bpm; Resp 18bpm; Pulse Ox 95% RA; 105.23 kg; Height 5 ft. 8 in.; BMI: ll1 35.2; Pain 0/10; ll1 13:21 12:28 Chief complaint: Patient states: Exposed Wednesday to covid. Still has leftover ll1 cough and slight SOB from his asthmatic bronchitis diagnosis from 2 weeks ago. No fever. ll1
[2020-04-21 13:55] VITALS: BP 157/104; TEMP 97.4; O2SAT 95
--- NOTE | 2020-04-21 14:01 | EDPHYS ---
Physician Documentation [facility] Name: Jean-Claude Renee Age: 40 yrs Sex: Male : 1980 Arrival Date: 04/21/2020 Time: 12:09 Bed Waiting Private MD: ED Physician Christ Garcia HPI: 04/21 14:04 This 40 yrs old Male presents to ER via Ambulatory with complaints of kb Breathing Difficulty, Cough. 14:04 The patient or guardian reports cough, that is intermittent, described as mild, with no kb sputum, flu symptoms, myalgias. Onset: The symptoms/episode began/occurred last night. Severity of symptoms: At their worst the symptoms were mild, moderate, in the emergency department the symptoms are unchanged. Modifying factors: The symptoms are alleviated by nothing, the symptoms are aggravated by nothing. Associated signs and symptoms: The patient has no apparent associated signs or symptoms. The patient has not experienced similar symptoms in the past. The patient has not recently seen a physician. Pt reports he has a cough because he recently had asthmatic bronchitis and is a smoker. States his cough had been productive before last night. States he was exposed to COVID at work last week and last night started having a dry cough. Body aches started this morning. Historical: - Allergies: 12:32 No Known Drug Allergies; ll1 - PMHx: 12:32 Asthma; Bronchitis; ll1 - PSHx: 12:32 None; ll1 - Immunization history:: Flu vaccine is not up to date. - Social history:: Smoking status: Patient reports the use of cigarette tobacco products, smokes one-half pack cigarettes per day. ROS: 14:03 ENT: Negative for injury, pain, and discharge, Cardiovascular: Negative for chest pain, kb palpitations, and edema, Abdomen/GI: Negative for abdominal pain, nausea, vomiting, diarrhea, and constipation, Back: Negative for injury and pain, MS/Extremity: Negative for injury and deformity, Skin: Negative for injury, rash, and discoloration, Neuro: Negative for headache, weakness, numbness, tingling, and seizure. 14:03 Constitutional: Positive for body aches. 14:03 Respiratory: Positive for cough, Negative for dyspnea on exertion, hemoptysis, orthopnea, pleurisy, shortness of breath, sputum production, wheezing. Exam: 14:04 Constitutional: This is a well developed, well nourished patient who is awake, alert, kb and in no acute distress. Head/Face: Normocephalic, atraumatic. Chest/axilla: Normal chest wall appearance and motion. Nontender with no deformity. No lesions are appreciated. Cardiovascular: Regular rate and rhythm with a normal S1 and S2. No gallops, murmurs, or rubs. Normal PMI, no JVD. No pulse deficits. Respiratory: Lungs have equal breath sounds bilaterally, clear to auscultation and percussion. No rales, rhonchi or wheezes noted. No increased work of breathing, no retractions or nasal flaring. Abdomen/GI: Soft, non-tender, with normal bowel sounds. No distension or tympany. No guarding or rebound. No evidence of tenderness throughout. Skin: Warm, dry with normal turgor. Normal color with no rashes, no lesions, and no evidence of cellulitis. MS/ Extremity: Pulses equal, no cyanosis. Neurovascular intact. Full, normal range of motion. Neuro: Awake and alert, GCS 15, oriented to person, place, time, and situation. Cranial nerves II-XII grossly intact. Motor strength 5/5 in all extremities. Sensory grossly intact. Cerebellar exam normal. Normal gait. Vital Signs: 12:28 BP 157 / 104; ll1 12:28 Pulse 108; Resp 18; Temp 97.4; Pulse Ox 95% on R/A; Weight 105.23 kg; Height 5 ft. 8 ll1 in. (172.72 cm); Pain 0/10; 12:28 Body Mass Index 35.27 (105.23 kg, 172.72 cm) ll1 MDM: 13:19 Patient medically screened. kb 14:02 Data reviewed: vital signs, nurses notes. Data interpreted: Pulse oximetry: on room air kb is 95 %. Interpretation: normal. Counseling: I had a detailed discussion with the patient and/or guardian regarding: the historical points, exam findings, and any diagnostic results supporting the discharge/admit diagnosis, lab results, the need for outpatient follow up, a family practitioner, to return to the emergency department if symptoms worsen or persist or if there are any questions or concerns that arise at home. Administered Medications: No medications were administered Disposition: 17:08 Co-signature as Attending Physician, Christ Garcia MD. ma2 Disposition: 04/21/20 14:00 Discharged to Home. Impression: Acute upper respiratory infection, unspecified. - Condition is Stable. - Discharge Instructions: Viral Respiratory Infection, [id number], COVID-19. - Medication Reconciliation Form, Thank You Letter, Antibiotic Education, Prescription Opioid Use form. - Follow up: Emergency Department; When: As needed; Reason: Worsening of condition. Follow up: Private Physician; When: 2 - 3 days; Reason: Recheck today's complaints, Continuance of care, Re-evaluation by your physician. Signatures: Dispatcher [employer] EDDC Yanely Gamble, ANODE BUILDER-C ANODE BUILDER-Ckb Conchita Huerta, RN RN Christ Noyola MD MD ma2 Judah Vernon RN RN ll1 Corrections: (The following items were deleted from the chart) 13:36 13:05 CORONAVIRUS+MR.LAB.BRZ ordered. EDDC EDDC 13:37 13:05 Influenza Screen (A \T\ B)+BA.LAB.BRZ ordered. [facility] EDDC 13:59 13:50 04/21/2020 13:50 Patient left the facility after being seen by provider. Reason kb stated they are leaving due to (see nurse's notes). 14:00 14:00 04/21/2020 14:00 Discharged to Home. Impression: Acute upper respiratory kb infection, unspecified. Condition is Stable. Forms are Medication Reconciliation Form, Thank You Letter, Antibiotic Education, Prescription Opioid Use. Follow up: Emergency Department; When: As needed; Reason: Worsening of condition. Follow up: Private Physician; When: 2 - 3 days; Reason: Recheck today's complaints, Continuance of care, Re-evaluation by your physician. kb
[2020-04-21 14:25] LABS: SARS-COV-2 RT PCR NEGATIVE (NEGATIVE)
== END 2020-04-21 14:00 | disposition home or self-care (01) ==
LOC: ER 12:07
DX: J06.9 Acute upper respiratory infection, unspecified (principal); Z20.822 Contact with and (suspected) exposure to COVID-19; F17.210 Nicotine dependence, cigarettes, uncomplicated
CPT/HCPCS: 0240U; 99281

== ENCOUNTER 2022-06-09 08:12 | Emergency (ER) | payer SELFPAY ==
[2022-06-09] MEDS ORDERED: HYDROCODONE/APAP 10/325 TAB ONE (08:38)
[2022-06-09] MEDS ORDERED: DIAZEPAM 5 MG TABLET ONE (08:38)
--- NOTE | 2022-06-09 09:09 | RAD REPORT ---
EXAM DESCRIPTION: RAD - Ankle Right 3 View - 06/09/2022 9:03 am CLINICAL HISTORY: Right ankle pain FINDINGS: No fracture or dislocation is seen. Lateral soft tissue swelling. Large calcaneal spur
[2022-06-09 10:44] VITALS: BP 158/106; TEMP 97.8; O2SAT 98
--- NOTE | 2022-06-26 14:20 | ER ---
Nurse's Notes [facility] Name: Jean-Claude Renee Age: 42 yrs Sex: Male : 1980 Arrival Date: 06/09/2022 Time: 08:15 Bed 18 Private MD: Diagnosis: Sprain of ankle Presentation: 06/09 08:20 Chief complaint: Patient states: Stepped out of bed this morning - rolled right ankle. ld1 C/O pain to right ankle/foot. Coronavirus screen: At this time, the client does not indicate any symptoms associated with coronavirus-19. Ebola Screen: No symptoms or risks identified at this time. Initial Sepsis Screen: Does the patient meet any 2 criteria? No. Patient's initial sepsis screen is negative. Does the patient have a suspected source of infection? No. Patient's initial sepsis screen is negative. Risk Assessment: Do you want to hurt yourself or someone else? Patient reports no desire to harm self or others. Onset of symptoms was June 09, 2022. 08:20 Method Of Arrival: Wheelchair ld1 08:20 Acuity: HOLLY 4 ld1 Triage Assessment: 08:24 General: Appears in no apparent distress. comfortable, Behavior is calm, cooperative, ld1 appropriate for age. Pain: Complains of pain in right foot Pain does not radiate. Pain currently is 10 out of 10 on a pain scale. Quality of pain is described as throbbing. EENT: No signs and/or symptoms were reported regarding the EENT system. Neuro: Level of Consciousness is awake, alert, obeys commands, Oriented to person, place, time, situation. Cardiovascular: Capillary refill < 3 seconds Patient's skin is warm and dry. Respiratory: Airway is patent Respiratory effort is even, unlabored. GI: Abdomen is round non-distended. : No signs and/or symptoms were reported regarding the genitourinary system. Derm: No signs and/or symptoms reported regarding the dermatologic system. Musculoskeletal: Reports pain in right foot. Historical: - Allergies: 08:24 No Known Allergies; ld1 - Home Meds: 08:24 None [Active]; ld1 - PMHx: 08:24 Asthma; Bronchitis; ld1 - PSHx: 08:24 None; ld1 - Immunization history:: Adult Immunizations up to date, Client reports receiving the 2nd dose of the Covid vaccine. - Social history:: Smoking status: Patient denies any tobacco usage or history of. Patient uses alcohol, on a daily basis. Screenin:30 [facility] ED Fall Risk Assessment (Adult) History of falling in the last 3 months, bp including since admission No falls in past 3 months (0 pts). Abuse screen: Denies threats or abuse. Denies injuries from another. Nutritional screening: No deficits noted. Tuberculosis screening: No symptoms or risk factors identified. Assessment: 08:30 General: SEE TRIAGE NOTE. bp Vital Signs: 08:20 BP 158 / 106; Pulse 103; Resp 18; Temp 97.8(TE); Pulse Ox 98% on R/A; Weight 114.76 kg; ld1 Height 5 ft. 8 in. ; Pain 10/10; 08:20 Body Mass Index 38.47 (114.76 kg, 172.72 cm) ld1 08:20 Pain Scale: Adult ld1 ED Course: 08:15 Patient arrived in ED. rg4 08:18 Morales Kapoor PA is PHCP. jmm 08:18 Edwin Bailey DO is Attending Physician. jmm 08:21 Triage completed. ld1 08:22 nAgelo Schwarz, MARY is Primary Nurse. bp 08:24 Arm band placed on right wrist. ld1 08:30 Patient has correct armband on for positive identification. Bed in low position. Call bp light in reach. Side rails up X2. 09:01 Ankle Right 3 View XRAY Sent. bp 09:35 Amari Amezquita MD is Referral Physician. jmm 10:39 No provider procedures requiring assistance completed. Patient did not have IV access bp during this emergency room visit. Crutch training done. Triston wrap to right ankle. Administered Medications: 08:45 Drug: [place] PO 10 mg-325 mg 1 tabs Route: PO; bp 09:10 Follow up: Response: No adverse reaction bp 08:45 Drug: Diazepam PO 5 mg Route: PO; bp 09:10 Follow up: Response: No adverse reaction bp Outcome: 09:35 Discharge ordered by . jmm 10:32 Patient left the ED. iw 10:40 Discharged to home via wheelchair, with family. bp 10:40 Condition: stable 10:40 Discharge instructions given to patient, family, Instructed on discharge instructions, follow up and referral plans. medication usage, crutch walking, Demonstrated understanding of instructions, follow-up care, medications, crutch walking, Prescriptions given X 2. Signatures: Morales Kapoor PA PA jmm Williams, Irene, RN Krystal Tavares rg4 Angelo Schwarz RN RN bp Marietta Temple RN RN ld1
--- NOTE | 2022-06-26 14:20 | EDPHYS ---
Physician Documentation [facility] Name: Jean-Claude Renee Age: 42 yrs Sex: Male : 1980 Arrival Date: 06/09/2022 Time: 08:15 Bed 18 Private MD: ED Physician Edwin Bailey HPI: 06/09 08:23 This 42 yrs old Male presents to ER via Wheelchair with complaints of Ankle jmm Injury. 08:23 The patient presents with an injury, pain. Onset: The symptoms/episode began/occurred jmm acutely, this morning. Associated signs and symptoms: Pertinent positives: swelling. Modifying factors: The symptoms are alleviated by nothing, the symptoms are aggravated by weight bearing, movement. Is a 42-year-old male with history of asthma and bronchitis the presents emerged department with complaints of right ankle pain beginning this morning after rolling his ankle while getting out of bed. Denies other injury.. Historical: - Allergies: 08:24 No Known Allergies; ld1 - Home Meds: 08:24 None [Active]; ld1 - PMHx: 08:24 Asthma; Bronchitis; ld1 - PSHx: 08:24 None; ld1 - Immunization history:: Adult Immunizations up to date, Client reports receiving the 2nd dose of the Covid vaccine. - Social history:: Smoking status: Patient denies any tobacco usage or history of. Patient uses alcohol, on a daily basis. ROS: 08:23 Constitutional: Negative for fever, chills, and weight loss, Cardiovascular: Negative jmm for chest pain, palpitations, and edema, Respiratory: Negative for shortness of breath, cough, wheezing, and pleuritic chest pain. 08:23 MS/extremity: Positive for injury or acute deformity, pain. 08:23 All other systems are negative. Exam: 08:23 Constitutional: This is a well developed, well nourished patient who is awake, alert, jmm and in no acute distress. Head/Face: atraumatic. Eyes: EOMI, no conjunctival erythema appreciated ENT: Moist Mucus Membranes Neck: Trachea midline, Supple Chest/axilla: Normal chest wall appearance and motion. Cardiovascular: Regular rate and rhythm. No edema appreciated Respiratory: Normal respirations, no respiratory distress appreciated Abdomen/GI: Non distended Back: Normal ROM Skin: General appearance color normal 08:23 Musculoskeletal/extremity: Swelling noted to the right lateral malleolus, compartments are soft, full dorsalis pedis pulse, diffuse tenderness laterally, no obvious deformity, neurovascular intact. 08:23 Skin: Appearance: Color: normal in color. 08:23 Neuro: Orientation: is normal, Mentation: is normal, Memory: is normal. 08:23 Psych: Behavior/mood is pleasant, cooperative. Vital Signs: 08:20 BP 158 / 106; Pulse 103; Resp 18; Temp 97.8(TE); Pulse Ox 98% on R/A; Weight 114.76 kg; ld1 Height 5 ft. 8 in. ; Pain 10/; 08:20 Body Mass Index 38.47 (114.76 kg, 172.72 cm) ld1 08:20 Pain Scale: Adult ld1 MDM: 08:23 Patient medically screened. [facility] 09:34 Differential diagnosis: fracture, sprain. Data reviewed: vital signs, nurses notes, [facility] radiologic studies. I considered the following discharge prescriptions or medication management in the emergency department Medications were administered in the Emergency Department. See MAR. Independent interpretation of the following test(s) in the Emergency Department X-Ray: My interpretation is No fracture appreciated. Counseling: I had a detailed discussion with the patient and/or guardian regarding: the historical points, exam findings, and any diagnostic results supporting the discharge/admit diagnosis, radiology results, the need for outpatient follow up, to return to the emergency department if symptoms worsen or persist or if there are any questions or concerns that arise at home. ED course: Patient is alert nontoxic in appearance in the ED. X-rays negative. Advised follow-up with orthopedics/PCP and otherwise given strict return precautions. Patient understood and agrees plan of care.. 03 08:26 Order name: Ankle Right 3 View XRAY [facility] 06/09 09:10 Order name: RAD; Complete Time: 09:13 EDMS Administered Medications: 08:45 Drug: [place] PO 10 mg-325 mg 1 tabs Route: PO; bp 09:10 Follow up: Response: No adverse reaction bp 08:45 Drug: Diazepam PO 5 mg Route: PO; bp 09:10 Follow up: Response: No adverse reaction bp Disposition: 16:21 Co-signature as Attending Physician, Edwin Bailey DO I reviewed the patient's care ms3 provided by the Advanced Practice Provider and agree with the diagnosis and treatment plan. Disposition Summary: 06/09/22 09:35 Discharge Ordered Location: Home [facility] Condition: Stable [facility] Diagnosis - Sprain of ankle [facility] Followup: [facility] - With: Amari Amezquita MD - When: 2 - 3 days - Reason: Recheck today's complaints, Continuance of care, Re-evaluation by your physician Discharge Instructions: - Discharge Summary Sheet [facility] - Ankle Sprain [facility] Forms: - Medication Reconciliation Form [facility] - Thank You Letter [facility] - Antibiotic Education [facility] - Prescription Opioid Use [facility] Prescriptions: - Diclofenac Sodium 75 mg Oral Tablet Sustained Release - take 1 tablet by ORAL route 2 times per day; 30 tablet; Refills: 0, Product [facility] Selection Permitted - orphenadrine citrate 100 mg Oral Tablet Sustained Release - take 1 tablet by ORAL route 2 times per day As needed; 20 tablet; Refills: 0, [facility] Product Selection Permitted Signatures: Dispatcher [employer] EDMorales Ocasio PA PA jmm Peltier, Brian, RN RN Edwin Barragan DO DO ms3 Marietta Temple RN RN ld1
== END 2022-06-09 10:32 | disposition home or self-care (01) ==
LOC: ER 08:12
DX: S93.401A Sprain of unspecified ligament of right ankle, initial encounter (principal)
CPT/HCPCS: 99284